=== PATIENT | male | born 1975 | race Caucasian/White ===

== ENCOUNTER 2021-10-27 00:23 | Emergency (ER) | payer OTHER ==
--- NOTE | 2021-10-27 00:53 | EDM.PDOC ---
ED HPI GENERAL MEDICAL PROBLEM - General Chief Complaint: Chest Pain Stated Complaint: CHEST PAIN Time Seen by Provider: 10/27/21 00:32 Source of Information: Reports: Patient, Family () History Limitations: Reports: No Limitations - History of Present Illness INITIAL COMMENTS - FREE TEXT/NARRATIVE: Mr. Leyva is a very pleasant 45-year-old gentleman who now presents the ED stating that he has been experiencing retrosternal chest pressure on and off for about a week. He describes the sensation as a discomfort, not a pain. When present, it comes on quickly, within a few seconds, then lasts for a few seconds before resolving. He states that he has 1 or 2 episodes every couple of days. The most recent episode occurred around 23:30 tonight. He states that the onset only occurs if he is sitting or sedentary, never if he is exerting himself. He reports that he exercises 4 or 5 times a week, and he has never experienced the discomfort when exercising. When present, he denies any associated symptoms, such as nausea, dyspnea, diaphoresis, or sense of impending doom. The patient states that it is possible that he has had similar symptoms a couple of times over the past few years, but he has never sought medical evaluation for them. Here in the ED, the patient is found to be hemodynamically stable, afebrile, saturating 99% on room air. He appears to be comfortable, in no acute distress. He states that he is currently asymptomatic. Prior to a week ago, the patient denies having a recent fever, chills, sore throat, ear pain, nasal or sinus congestion, cough, dyspnea, palpitations, nausea, vomiting, constipation, diarrhea, abdominal pain, urinary symptoms, recent weight gain or weight loss, recent bloody bowel movements or black bowel movements, recent joint aches, headaches, or rashes. The patient's PCP is Dr. Shay Godoy. He has received 2 COVID vaccinations plus a booster, as well as an influenza vaccination this season. Chest Pain Score (Numeric/FACES): 1 - Related Data Allergies Allergy/AdvReac Type Severity Reaction Status Date / Time No Known Allergies Allergy Verified 10/27/21 00:38 Home Meds: Home Meds Albuterol Sulfate [Albuterol Sulfate Hfa] 10/27/21 [History] Budesonide/Formoterol Fumarate [Symbicort 160-4.5 Mcg Inhaler] 10/27/21 [History] Fish Oil/[place]-3 Fatty Acids [Fish Oil 1,000 MG] 1 tab PO DAILY 10/27/21 [History] L.acidoph,Paracasei, B.lactis [Probiotic] 1 tab PO DAILY 10/27/21 [History] Multivitamin 1 tab PO DAILY 10/27/21 [History] Past Medical History Respiratory History: Reports: Asthma (suspected, not PFT-tested) - Past Surgical History HEENT Surgical History: Reports: Oral Surgery (dental extractions) GI Surgical History: Reports: Appendectomy, Hernia, Inguinal (bilateral, as an infant) Social & Family History - Tobacco Use Tobacco Use Status *Q: Never Tobacco User - Alcohol Use Alcohol Use History: Yes Alcohol Use Frequency: Socially - Recreational Drug Use Recreational Drug Use: No - Living Situation & Occupation Living situation: Reports: , with Spouse Occupation: Employed (sap analyst) ED ROS GENERAL - Review of Systems Review Of Systems: Comprehensive ROS is negative, except as noted in HPI. ED EXAM, GENERAL - Physical Exam Exam: See Below Exam Limited By: No Limitations General Appearance: Alert, WD/WN, No Apparent Distress Eye Exam: Bilateral Eye: EOMI, Normal Inspection Ears: Normal External Exam, Hearing Grossly Normal Nose: Normal Inspection Throat/Mouth: Normal Inspection, Normal Lips, Normal Voice, No Airway Compromise Head: Atraumatic, Normocephalic Neck: Normal Inspection, Full Range of Motion Respiratory/Chest: No Respiratory Distress, Lungs Clear, Normal Breath Sounds, No Accessory Muscle Use, Chest Non-Tender (including the sternum) Cardiovascular: Normal Peripheral Pulses, Regular Rate, Rhythm, No Edema, No Gallop, No JVD, No Murmur, No Rub Peripheral Pulses: 3+: Radial (L), Radial (R) GI/Abdominal: Normal Bowel Sounds, Soft, Non-Tender (including the epigastrium), No Organomegaly, No Distention, No Abnormal Bruit, No Mass Back Exam: Normal Inspection, Full Range of Motion, NT Extremities: Normal Inspection, Normal Range of Motion, No Pedal Edema, Normal Capillary Refill Neurological: Alert, Oriented, Normal Cognition, No Motor/Sensory Deficits Psychiatric: Normal Affect Skin Exam: Warm, Dry, Intact, Normal Color, No Rash #1 Interpretation EKG Date: 10/27/21 Time: 00:34 Rhythm: Other (Sinus bradycardia) Rate (Beats/Min): 59 [place]: Normal P-Wave: Present QRS: Other (Early transition) ST-T: Normal QT: Normal Comparison: NA - No Prior EKG Course - Vital Signs Last Recorded V/S: Last Vital Signs Temp 36.2 C 10/27/21 00:29 Pulse 66 10/27/21 00:29 Resp 11 L 10/27/21 00:29 BP 126/89 10/27/21 00:29 Pulse Ox 99 10/27/21 00:29 - Orders/Labs/Meds Orders: Active Orders 24 hr Category Date Time Status Chest 2V [CR] Stat Exams 10/27/21 00:50 Taken Labs: Laboratory Tests 10/27/21 10/27/21 Range/Units 01:05 01:05 WBC 6.39 (4.23-9.07) K/mm3 RBC 5.34 (4.63-6.08) M/mm3 Hgb 15.2 (13.7-17.5) gm/dl Hct 44.6 (40.1-51.0) % MCV 83.5 (79.0-92.2) fl MCH 28.5 (25.7-32.2) pg MCHC 34.1 (32.2-35.5) g/dl RDW Std Deviation 41.3 (35.1-43.9) fL Plt Count 328 (163-337) K/mm3 MPV 9.9 (9.4-12.3) fl Neutrophils % (Manual) 56 (40-60) % Band Neutrophils % 0 (0-10) % Lymphocytes % (Manual) 39 (20-40) % Atypical Lymphs % 0 % Monocytes % (Manual) 3 (2-10) % Eosinophils % (Manual) 1 (0.8-7.0) % Basophils % (Manual) 1 (0.2-1.2) Platelet Estimate Adequate RBC Morph Comment Normal Sodium 140 (136-145) mEq/L Potassium 4.1 (3.5-5.1) mEq/L Chloride 105 (98-107) mEq/L Carbon Dioxide 30 (21-32) mEq/L Anion Gap 9.1 (5-15) BUN 15 (7-18) mg/dL Creatinine 1.1 (0.7-1.3) mg/dL Est Cr Clr Drug Dosing 81.18 mL/min Estimated GFR (MDRD) > 60 (>60) mL/min BUN/Creatinine Ratio 13.6 L (14-18) Glucose 96 (70-99) mg/dL Calcium 8.9 (8.5-10.1) mg/dL Total Bilirubin 0.3 (0.2-1.0) mg/dL AST 45 H (15-37) U/L ALT 95 H (16-63) U/L Alkaline Phosphatase 72 (46-116) U/L Troponin I < 0.017 (0.00-0.056) ng/mL Total Protein 7.0 (6.4-8.2) g/dl Albumin 3.8 (3.4-5.0) g/dl Globulin 3.2 gm/dL Albumin/Globulin Ratio 1.2 (1-2) Meds: Medications Discontinued Medications Generic Name Dose Route Start Last Admin Trade Name Freq PRN Reason Stop Dose Admin Famotidine 40 mg 10/27/21 01:54 10/27/21 02:02 Famotidine 20 Mg Tab PO 10/27/21 01:55 40 mg ONETIME ONE Administration - Re-Assessments/Exams Free Text/Narrative Re-Assessment/Exam: 10/27/21 00:51 The patient's history is most consistent with GERD, however, the patient is currently asymptomatic, therefore I cannot give him a GI cocktail to test that. An ECG, obtained at triage, shows no ischemic changes. I have ordered an additional work-up that includes several blood tests and a chest x-ray. If the patient redevelops symptoms, he will be given a GI cocktail. 10/27/21 01:15 Two-view chest radiograph appears to be grossly normal. The cardiac silhouette is within normal limits. No pulmonary vascular congestion. No pleural effus ions. No focal infiltrate. No pneumothorax. Formal read per the Radiologist pending. 10/27/21 01:51 The patient's CBC is unremarkable. His CMP is remarkable for an AST/ALT slightly elevated at 45/95, respectively, and is otherwise unremarkable. His troponin is undetectably low. 10/27/21 01:55 Test results discussed with the patient and his . As above, today's work-up is grossly unremarkable, and does not explain the cause of the patient's symptoms. I suspect that he is suffering from GERD, and we will therefore start him on famotidine here in the ED, with the recommendation that he continue to take 1 tablet once a day, going forward. If his symptoms persist, he should increase the dosage to 1 tablet twice a day, but if his symptoms persist despite that, then it is time for an EGD. Departure - Departure Time of Disposition: 01:56 Disposition: Home, Self-Care 01 Condition: Good Clinical Impression: Chest pain of uncertain etiology - Discharge Information *PRESCRIPTION DRUG MONITORING PROGRAM REVIEWED*: Not Applicable *COPY OF PRESCRIPTION DRUG MONITORING REPORT IN PATIENT MANUEL: Not Applicable Referrals: Shay Godoy MD [Primary Care Provider] - Forms: ED Department Discharge Additional Instructions: You were seen in the emergency room for recurrent retrosternal chest discomfort. Work-up in the ER included several blood tests, a chest x-ray, and an ECG. Your entire work-up was unremarkable. You have not suffered a heart attack. You do not have a blood clot in your lungs. You do not have pneumonia or a collapsed lung. Based on your history, physical examination, and ER tests, you are most likely suffering from GERD, also known as acid reflux. You have been started on the antacid famotidine (Pepcid). Famotidine is available [id number], and generic famotidine is just as good as name-brand Pepcid. We recommend that you take 1 tablet of famotidine once a day. If your symptoms despite taking famotidine once a day, you may increase the dosage to 1 tablet twice a day, however, if your symptoms persist despite taking famotidine twice a day, we recommend that you follow-up with your PCP, Dr. Shay Godoy, to arrange for an EGD (scope of your esophagus and stomach). If any other problems, please do not hesitate to return to the ER. Sepsis Event Note (ED) - Evaluation Sepsis Screening Result: No Definite Risk - Focused Exam Vital Signs: Vital Signs Temp Pulse Resp BP Pulse Ox 10/27/21 00:29 36.2 C 66 11 L 126/89 99 - My Orders Last 24 Hours: My Active Orders 10/27/21 00:50 Chest 2V [CR] Stat - Assessment/Plan Last 24 Hours: My Active Orders 10/27/21 00:50 Chest 2V [CR] Stat
[2021-10-27] MEDS ORDERED: Famotidine 20 MG Tab PO ONE (01:54)
--- NOTE | 2021-10-27 07:14 | CR ---
Chest: 2 views of the chest were obtained. Comparison: No prior chest imaging is available. Heart size and mediastinum are normal. Lungs are clear with no acute parenchymal change. Bony structures show nothing acute. Impression: 1. Nothing acute is seen on 2-view chest x-ray. Diagnostic code #1
== END 2021-10-27 02:07 | disposition home or self-care (01) ==
LOC: JD.ED 00:23
DX: R07.2 Precordial pain (principal); R07.89 Other chest pain; R00.1 Bradycardia, unspecified
CPT/HCPCS: 36415; 71046; 80053; 84484; 85007; 85027; 93005; 99285; A9270